=== PATIENT | male | born 1975 | race Caucasian/White ===

== ENCOUNTER 2020-01-11 15:28 | Emergency (ER) | payer OTHER ==
[~2020-01-11] VITALS: Ht 177.8 cm; Wt 94.5 kg
--- NOTE | 2020-01-11 15:50 | NUR ---
CALLED FOR PT. PT NOT IN LOBBY AT THIS TIME.
[2020-01-11 16:28] VITALS: BP 154/88
[2020-01-11] MEDS ORDERED: LIDOCAINE-MPF 1%, 5ML INFIL ONE (16:30)
[2020-01-11] MEDS ORDERED: DIPH,PERTUSS(ACELL),TET VAC/PF 0.5 ML IM-VACC ONE ×2 (16:30→18:13)
[2020-01-11] MEDS ORDERED: LIDOCAINE-MPF 1%, 5ML ONE ×2 (16:33→18:13)
--- NOTE | 2020-01-11 16:36 | NUR ---
UTILIZATION MANAGEMENT NURSE: GIBSON YANCEY REQUESTED THAT WE PULL LIDOCAINE AND PT'S LAC NUMBED AND IRRIAGTED IN TRIAGE.
--- NOTE | 2020-01-11 17:54 | NUR ---
DIGITAL SOLUTION ARCHITECT: PT AMBULATORY WITH STEADY GAIT TO ROOM AT THIS TIME. BHARGAVI
[2020-01-11] MEDS ORDERED: HYDROcodone/APAP 5/325 TABLET ONE (19:29)
[2020-01-11] MEDS ORDERED: HYDROcodone/APAP 5/325 TABLET PO ONE (19:30)
--- NOTE | 2020-01-11 19:40 | NUR ---
TECH AT BEDSIDE DRESSING AND SPLINTING FINGER. MEDICATED NOTED ON MAR FOR PAIN. DISCHARGE GIVEN AND PT TO FOLLOW UP WITH [facility]THO
== END 2020-01-11 19:57 | disposition home or self-care (01) ==
LOC: ED 18:52
DX: S61.216A Laceration without foreign body of right little finger without damage to nail, initial encounter (principal); W26.0XXA Contact with knife, initial encounter; Y92.098 Other place in other non-institutional residence as the place of occurrence of the external cause; Y99.8 Other external cause status
CPT/HCPCS: 12001; 29130; 90471; 90715; 99283